=== PATIENT | male | born 1985 | race Caucasian/White ===

== ENCOUNTER 2025-01-15 08:15 | Outpatient (CLI) | payer BC, SELFPAY ==
--- NOTE | ~2025-01-15 | XR_ITS ---
EXAMINATION: XR chest 2V Exam Date/Time: 01/15/2025 8:40 CDT HISTORY: chronic cough Comparison: CT abdomen pelvis 07/16/2017. RESULT: Lines, tubes, and devices: Cervical spine fusion hardware.. Lungs and pleura: Low volumes with mild crowding. 1.4 cm densely and uniformly calcified left lower lobe granuloma/hamartoma. No focal consolidation, pleural effusion, or pneumothorax. Cardiomediastinal silhouette: Normal. Other: No acute osseous or upper abdominal finding. IMPRESSION: No acute cardiopulmonary process. Reviewed, dictated and finalized at location K.
--- OUTSIDE RECORDS SUMMARY | 2025-01-15 08:21 | XMS_ITS | Clinical Summary ---
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 Gender Identity Not on file Sexual Orientation Not on file Obstetrics History Plan of Treatment Health Maintenance Due Date Last Done Comments Depression Screening 1983 Hepatitis C Screening 1983 Varicella Vaccines (1 of 2 - 13+ 2-dose series) 1996 Hepatitis B Screening 2001 Regular Well Visit/Exam 18-64 2001 HPV Vaccines (1 - 3-dose SCD M series) 2010 Covid-19 Vaccine (3 - 2023-2 5 season) 2024 03/08/2021, 02/15/2021 Influenza Vaccine (#1) 2025 05/09/2020 DTaP/Tdap/Td Vaccine (2 - Td or Tdap) 10/09/2031 10/08/2021 Pneumococcal vaccine <65 Aged Out No longer eligible based on patient's age to complete this topic Insurance [facility] Care Teams Bottle Inspector Relationship Specialty Start Date End Date Julián Miller MD PCP - General Internal Medicine 05/26/23
--- OUTSIDE RECORDS SUMMARY | 2025-01-15 08:21 | XMS_ITS | Referral Summary ---
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
--- OUTSIDE RECORDS SUMMARY | 2025-01-15 08:21 | XMS_ITS | Clinical Summary ---
Author Organization [facility] Address [address] [place] [address] Care Team Providers Care Oil Processing Technician Name Role Phone Julián Miller MD Primary Care Provider [phone] Source Comments [facility],non-owned Affiliates and Associated Physician Practices is amultiple site organization consisting of ambulatory clinics and hospital sitesin [place], [place] and [place]. This disclosure is being madepursuant to the Care Everywhere program and may not contain all information available regarding this patient. Last updated 18.[facility] Allergies No known active allergies Medications * Be aware that medications may not be up to date on this document. Alwaysverify current medications with the patient. 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 Gender Identity Not on file Sexual Orientation Not on file Last Filed Vital Signs Vital Sign Reading Time Taken Comments Blood Pressure 130/70 08/06/2021 2:24 PM SUPERVISOR INSPECTION DEPARTMENT Pulse 80 08/06/2021 2:24 PM SUPERVISOR INS[employer]CTION DEPARTMENT Temperature - - Respiratory Rate 15 08/06/2021 2:24 PM SUPERVISOR INSPECTION DEPARTMENT Oxygen Saturation 97% 08/06/2021 2:24 PM SUPERVISOR INSPECTION DEPARTMENT Inhaled Oxygen Concentration - - Weight 104.8 kg (231 lb) 08/06/2021 2:24 PM SUPERVISOR INSPECTION DEPARTMENT Height 170.2 cm (5' 7) 08/06/2021 2:24 PM SUPERVISOR INSPECTION DEPARTMENT Body Mass Index 36.18 08/06/2021 2:24 PM SUPERVISOR INSPECTION DEPARTMENT Plan of Treatment Health Maintenance Due Date Last Done Comments LIPID TESTING 1983 HIV SCREENING 1998 HEPATITIS C SCREENING 03/10/2001 DTAP/TDAP/TD VACCINES (1 - Tdap) 2002 HEPATITIS B VACCINE (1 of 3 - 19+ 3-dose series) 2002 HPV VACCINE (1 - 3-dose SCDM series) 2010 COVID-19 VACCINE (1 - 2023-2 5 season) 2024 DEPRESSION SCREENING 06/16/2024 INFLUENZA VACCINE (#1) 2025 ZOSTER VACCINE (1 of 2) 2033 HIB VACCINE Aged Out No longer eligi ble based on patient's age to complete this topic MENINGOCOCCAL (Group B) VACC INE SHARED DECISION-MAKING Aged Out No longer eligibl e based on patient's age to complete this topic MENINGOCOCCAL GROUPS A/C/Y/W VACCINE Aged Out No longer eligible b ased on patient's age to complete this topic PNEUMOCOCCAL VACCINE Aged Out No long er eligible based on patient's age to complete this topic Insurance [employer] Care Teams Oil Processing Technician Relationship Specialty Start Date End Date Julián Miller MD PCP - General Internal Medicine 08/06/21
--- OUTSIDE RECORDS SUMMARY | 2025-01-15 08:21 | XMS_ITS ---
Author Name Auto Generated, Auto Generated Organization [facility] Address [address] [place] [address] Phone [phone] Care Team Providers Care Camera Maker Name Role Phone Fran Bob Unavailable [phone] Functional Status No Results Mental Status No Results Allergies and Intolerances Name Onset Date Reaction Severity No Known Allergies (Allergy) FriApr 28 19:33:00 2017 Medications Medication Directions Start Date End Date potassium chloride 20 mEq/L in dextrose 5 %-0.45 % sodium chloride IV 100ml/hr INTRAVENOUS SOLUTION Intravenous Continuous Continuous FriApr 28 20:00:00 2017Apr 29:00:00 2017 HYDROcodone 5 mg-acetaminophen 325 mg tablet 1-2 tablets TABLET Oral PRN Every 4 Hours Pain FriApr 28:00:00 2017Apr 29:00:00 2017 ketorolac 30 mg/mL (1 mL) injection solution 30mg VIAL (ML) Intravenous 2 Times Daily Inflammation FriApr 28::2017Apr 29:00:00 2017 vancomycin 1,000 mg intravenous injection 1000mg VIAL (EA) Intravenous 2 Times Daily Antibiotic FriApr 28 20:00:00 2017Apr 29:00:00 2017 Pepcid 20 mg tablet 20mg TABLET Oral 2 T imes Daily Stomach ulcer prevention FriApr 28 20:00:00 2017Apr 29:00:00 2017 acetaminophen 500 mg tablet 1000mg TABLET Oral PRN Every 6 Hours Fever >101 FriApr 28 21:00:00 2017Apr 29:00:00 2017 Benadryl 25 mg capsule 50mg CAPSULE Oral PRN Every 6 Hours Itching/Insomnia FriApr 28 21:00:00 2017Apr 29:00:00 2017 Zofran 2 mg/mL intravenous solution 4mg VIAL (ML) Intravenous PRN Every 4 Hours Nausea FriApr 28:00:2017Apr 29:00:00 2017 Flexeril 10 mg tablet 10mg TABLET Oral P RN 3 Times Daily Muscle Spasms FriApr 28 21:00:00 2017Apr 29:00:00 2017 Milk of Magnesia 400 mg/5 mL oral suspension 30ml SUSPENSION, ORAL (FINAL DOSE FORM) Oral PRN Hour Of Sleep Constipation FriApr 28:00:00 2017Apr 29:00:00 2017 dexamethasone 2 mg tablet 10mg TABLET Or al 1 Time Daily for 1 Day Inflammation FriApr 28:00:00 2017Apr 29:00:00 2017 Problems Active Concerns * Encounter for other orthopedic aftercare* Code: * Start Date: FriApr 28 00:00:00 2017 * End Date: * Text: * Cervicalgia* Code: * Start Date: FriApr 28 00:00:00 2017 * End Date: * Text: Reason for Referral Past Medical History
--- OUTSIDE RECORDS SUMMARY | 2025-01-15 08:21 | XMS_ITS | Continuity of Care Document ---
Author Organization [facility] Address [address] [place] [address] [address] [place] [address] Phone Care Team Providers Care Autographer Name Role Phone Jey Rose Unavailable Unavailable Advance Directives Directive Yes / No Effective Date File Name No Information Encounters Encounter Description Practice Location Reason(s) For Visit Diagnoses Date Provider Providers Copied on Encounter [facility], [address] [place], [place], [id number], [place] tel:[phone] [facility] No Information Nov- 1200 [address] Edward. [address] [facility] , [address], [place], [address], [place]. tel:[phone] Family History Family Member Type Diagnosis Age At Onset No Information Payers Payer name Insurance type Covered libertarian ID Authoriza tion(s) No Information Social History Type Description Quantity Date Captured Comments Sex Male Smoking Status No Information Chief Complaint And Reason For Visit No Information Reason For Referral Reason For Referral No Information History Of Present Illness Encounter Date Complaint History Of Prese nt Illness No Information Functional Status Date Functional Assessmen t No Information Instructions Date Instruction Additional Infor mation No Information Assessments Type Assessment Date No Information Patient Care Teams Name Effective Dates (start - stop) Status Members No Information
== END 2025-01-15 08:16 | disposition home or self-care (01) ==
DX: R05.3 Chronic cough (principal)
CPT/HCPCS: 71046